=== PATIENT | female | born 1940 | race Caucasian/White ===

== ENCOUNTER 2017-09-09 07:06 | Day surgery (SDC) | payer OTHER ==
--- NOTE | 2017-09-09 22:29 | GOP ---
Corrected report [f rep st] GENERAL OPERATIVE NOTE DATE OF SERVICE: 09/09/2017 PREOPERATIVE DIAGNOSES: 1. Failed peripheral nerve stimulation. 2. Chronic pain syndrome. POSTOPERATIVE DIAGNOSIS: 1. Failed peripheral nerve stimulation. 2. Chronic pain syndrome. PROCEDURE: Removal of occipital nerve stimulator percutaneous leads x2, and generator x1, removal of V1 peripheral nerve stimulator lead x1 and generator x1. SURGEON: Nelly Barnard DO SLEEPING CAR PORTER: Lupis Rouse, PAC EBL: 20 mL. FLUIDS: 1100 mL crystalloid. URINE OUTPUT: None. DRAINS: None. SPECIMENS: None. COMPLICATIONS: None. INDICATIONS: This is a 76-year-old female with an occipital nerve stimulator and V1 stimulator for headache that has been off for the last 6 months without change in her pain and she elected to have it removed. She was identified consented, sites were marked. Brought to the operating room, anesthetized under general endotracheal tube anesthesia rolled onto the OR bed with a Jaret frame. All pressure points were appropriately padded. Incision sites were marked. She was prepped and draped in the usual sterile fashion. The head and the hip were anesthetized with 0.5% Marcaine with epinephrine. Incision was made with a 10 blade and dissecting down with the Plasma Blade. Both leads were dissected up and out cut just distal to the anchors and then the generator was dissected out with the plasma blade. The leads were brought down and out. X-rays verified that all leads were removed. We copiously irrigated each incision with over a liter of gentamicin-infused saline. Closed the generator pocket space with 2 Vicryl pop-offs and a subcutaneous layer of 2-0 Vicryl pop-offs at each incision. Then the skin was closed with 3-0 running nylon. Both wounds were dressed with Xeroform gauze and Tegaderm at the hip, Medipore tape to the head. She was then flipped over and hair was clipped for the anterior incisions and she was prepped and draped in the usual sterile fashion. Incisions were anesthetized with 0.5% Marcaine with epinephrine. Incisions were made with a 10 blade. Hemostasis was obtained with bipolar cautery. Dissecting out with the plasma blade, we brought the V1 lead out and completely removed it, pulled it down and out after opening the chest wall with a 10 blade and dissecting out the generator and inspected the entire lead. The entire lead was removed. We copiously irrigated each incision with over a liter each of gentamicin infused saline. Closed the subcutaneous layer. Closed the generator pocket with 2-0 Vicryl pop-offs the space, closed the subcutaneous layer with 2-0 Vicryl pop-offs. The skin was closed with 3-0 running nylon at each incision, dressed with Xeroform gauze and a Tegaderm at the chest and Xeroform gauze and Medipore tape at the head. The patient tolerated procedure well. No complications. Florinda. work type from [facility] to [facility], [facility] 09/17/2017. /[id number]/MODL MTDD
== END 2017-09-09 13:00 | disposition home or self-care (01) ==
LOC: FSGY 07:06
PROVIDERS: ATTEND Neurological Surgery
PROC: 00P Central Nervous System and Cranial Nerves, Removal (ICD-10-PCS; principal; 2017-09-09 08:30)
PROC: 0JPT0MZ Removal of Stimulator Generator from Trunk Subcutaneous Tissue and Fascia, Open Approach (ICD-10-PCS; principal; 2017-09-09 08:30)
DX: Z46.2 Encounter for fitting and adjustment of other devices related to nervous system and special senses (principal); T85.199A Other mechanical complication of other implanted electronic stimulator of nervous system, initial encounter; G89.4 Chronic pain syndrome